=== PATIENT | female | born 1940 | race Hispanic/Latino ===

== ENCOUNTER → 2018-09-27 | Outpatient (CLI) | payer MEDICARE | END | disposition home or self-care (01) | LOC: OIH 09-19 12:48 | PROVIDERS: ATTEND Internal Medicine | DX: M47.26 Other spondylosis with radiculopathy, lumbar region (principal); M43.16 Spondylolisthesis, lumbar region; M85.88 Other specified disorders of bone density and structure, other site; M48.07 Spinal stenosis, lumbosacral region; M89.38 Hypertrophy of bone, other site | CPT/HCPCS: 72100 ==

== ENCOUNTER → 2018-10-28 | Outpatient (CLI) | payer MEDICARE | END | disposition home or self-care (01) | LOC: RAH 09:08 | PROVIDERS: ATTEND Internal Medicine | DX: M47.22 Other spondylosis with radiculopathy, cervical region (principal); M48.02 Spinal stenosis, cervical region | CPT/HCPCS: 72141 ==

== ENCOUNTER → 2024-06-06 | Outpatient (CLI) | payer MEDICARE ==
--- NOTE | 2024-06-06 15:50 | HMCIMG ---
US VENOUS DOPPLER UNILATERAL HISTORY: Left leg pain COMPARISON: None TECHNIQUE: Left lower extremity venous Doppler ultrasound study was performed. FINDINGS: The left common femoral, femoral, popliteal, and posterior tibial veins are visualized. Normal flow with augmentation and compressibilities are demonstrated. Left greater saphenous vein is patent. Free fluid is seen in the left suprapatellar area measuring 4.2 x 1.1 x 3.8 cm. This may be related to bursitis. IMPRESSION: 1. There may be suprapatellar bursitis measuring 4.2 x 1.1 x 3.8 cm. No deep venous thrombosis is seen of the left lower extremity deep venous system.-
== END | disposition home or self-care (01) ==
LOC: RAH 14:15
PROVIDERS: ATTEND Internal Medicine
DX: M79.605 Pain in left leg (principal)
CPT/HCPCS: 93971